=== PATIENT | female | born 1955 | race Caucasian/White ===

== ENCOUNTER 2023-10-06 09:54 | Emergency (ER) | payer BC, OTHER, SELFPAY ==
[~2023-10-06] VITALS: Ht 154.9 cm; Wt 66.0 kg
[2023-10-06 10:08] VITALS: O2SAT 97
[2023-10-06 11:21] LABS: BASOPHILS % 0.3 % (0.0-2.0); EOSINOPHILS % 0.2 % (0.0-5.0); HEMATOCRIT. 42.3 % (36.0-48.0); HEMOGLOBIN. 14.2 g/dL (12.0-16.0); MEAN CORPUSCULAR HEMOGLOBIN 31.4 pg (28.0-32.0); MEAN CORPUSCULAR HGB CONC 33.5 g/dL (31.0-37.0); MEAN CORPUSCULAR VOLUME 93.6 fL (81.0-99.0); MEAN PLATELET VOLUME 8.1 fl (7.4-10.4); MONOCYTES % 5.6 % (2.0-8.0); NEUTROPHILS % 83.9 % (40.0-76.0); PLATELET 210 x1000/uL (130-400); RED BLOOD CELL COUNT 4.52 mill/uL (4.2-5.4); WHITE BLOOD COUNT 9.5 x1000/uL (4.5-11.0)
[2023-10-06 11:29] LABS: CLARITY URINE SL HAZY (CLEAR); COLOR URINE YELLOW (YELLOW); GLUCOSE URINE NEGATIVE (NEGATIVE); KETONES URINE 1+ (NEGATIVE); PROTEIN URINE NEGATIVE (NEGATIVE)
[2023-10-06 11:30] LABS: LEUKOCYTE ESTERASE URINE TRACE (NEGATIVE); NITRITE URINE NEGATIVE (NEGATIVE); OCCULT BLOOD URINE 1+ (NEGATIVE); UROBILINOGEN URINE 0.2 E.U./dL (0.2-1.0)
[2023-10-06 11:33] LABS: ALANINE AMINOTRANSFERASE 39 IU/L (10-49); ALBUMIN 4.4 g/dL (3.2-4.8); ASPARTATE AMINOTRANSFERASE 23 IU/L (<34); CALCIUM 9.2 mg/dL (8.7-10.4); CARBON DIOXIDE 28 mEq/L (21-32); CHLORIDE 103 mEq/L (98-107); GLUCOSE 156 mg/dL (70-105); POTASSIUM 4.3 mEq/L (3.5-5.1); PROTEIN TOTAL 7.5 g/dL (6.0-8.3); SODIUM 137 mEq/L (136-145); SQUAMOUS EPITHELIAL CELL URINE 2+ /lpf (RARE/1+); UREA NITROGEN BLOOD 20 mg/dL (9-23)
[2023-10-06 11:35] LABS: BACTERIA URINE 2+; YEAST URINE NONE SEEN
[2023-10-06] MEDS ORDERED: SODIUM CHLORIDE 0.9% 1,000 ML IV ONE (15:45)
[2023-10-06] MEDS ORDERED: KETOROLAC 30MG/ML VIAL IV ONE (15:45)
[2023-10-06] MEDS ORDERED: ONDANSETRON HCL 4MG/2ML INJ IV ONE (15:45)
[2023-10-06] MEDS ORDERED: ONDANSETRON 4MG ODT PO ONE (17:15)
[2023-10-06] MEDS ORDERED: ACETAMINOPHEN 325MG TABLET PO ONE (17:15)
[2023-10-06] MEDS ORDERED: KETOROLAC 60MG/2ML VIAL IM ONE (17:15)
[2023-10-06] MEDS ORDERED: NAPR220C61 MT (21:32)
[2023-10-06] MEDS ORDERED: CEPH500T MT (21:32)
[2023-10-06 22:48] VITALS: BP 126/76; PULSE 81; RESP 17; TEMP 99
== END 2023-10-06 20:57 | disposition home or self-care (01) ==
LOC: ER 09:54
DX: N39.0 Urinary tract infection, site not specified (principal); N13.30 Unspecified hydronephrosis; E11.9 Type 2 diabetes mellitus without complications; I10 Essential (primary) hypertension; Z90.710 Acquired absence of both cervix and uterus
CPT/HCPCS: 99284; 74176; 80053; 81003; 83690; 85025; 36415; J7030